=== PATIENT | female | born 1985 | race Two or more races ===

== ENCOUNTER 2018-05-21 23:11 | Emergency (ER) | payer SELFPAY ==
[~2018-05-21] VITALS: Ht 157.5 cm; Wt 79.8 kg
[2018-05-22] MEDS ORDERED: IV NORMAL SALINE 1000ML BAG 1,000 ML IV SCH (00:30)
[2018-05-22 00:42] LABS: BASO # 0.1 x10^3/uL (0.0-0.2); BASO % 1 % (0-3); EOS # 0.2 x10^3/uL (0.0-0.7); EOS % 3 % (0-3); HEMATOCRIT 36.9 % (36.0-47.0); HEMOGLOBIN 13.1 g/dL (12.0-15.5); LYMPH # 3.5 x10^3/uL (1.0-4.8); LYMPH % 37 % (24-48); MEAN CORPUSCULAR HEMOGLOBIN 30 pg (25-35); MEAN CORPUSCULAR HGB CONC 36 g/dL (31-37); MEAN CORPUSCULAR VOLUME 85 fL (79-100); MONO # 0.8 x10^3/uL (0.0-1.1); MONO % 8 % (0-9); NEUT # 4.7 x10^3uL (1.8-7.7); NEUT % 51 % (31-73); PLATELET COUNT 312 x10^3/uL (140-400); RED BLOOD COUNT 4.36 x10^6/uL (3.50-5.40); RED CELL DISTRIBUTION WIDTH 13.9 % (11.5-14.5); WHITE BLOOD COUNT 9.3 x10^3/uL (4.0-11.0)
[2018-05-22 00:43] LABS: BILIRUBIN,URINE NEGATIVE (NEG); CLARITY,URINE CLEAR; COLOR,URINE YELLOW; NITRITE,URINE POSITIVE (NEG); PH,URINE 5.5; PROTEIN,URINE NEGATIVE (NEG-TRACE); UROBILINOGEN,URINE 0.2 mg/dL (0.2 mg/dL)
[2018-05-22 00:48] LABS: BACTERIA,URINE MANY /HPF (0-FEW); RBC,URINE OCC /HPF (0-2); SQUAMOUS EPITHELIAL CELL,UR MOD /LPF; WBC,URINE >40 /HPF (0-4)
[2018-05-22 00:51] LABS: CALCIUM 8.4 mg/dL (8.5-10.1); CREATININE 0.7 mg/dL (0.6-1.0); GFR 95.8; POTASSIUM 3.3 mmol/L (3.5-5.1)
[2018-05-22 00:57] LABS: ALBUMIN 3.4 g/dL (3.4-5.0); ALBUMIN/GLOBULIN RATIO 0.8 (1.0-1.7); TOTAL BILIRUBIN 0.2 mg/dL (0.2-1.0); TOTAL PROTEIN 7.7 g/dL (6.4-8.2)
--- NOTE | 2018-05-22 01:20 | EKG ---
[facility] [address] [place] [address] Test Date: 2018-05-22 Test Time: 00:18:06 Pat Name: ERAN HILL Department: Room: Gender: F Rehab Department Manager: : 1985 Requested By: TIGIST PARRISH Order Number: [id number] Reading MD: Measurements Intervals [place] Rate: 102 P: 44 SC: 174 QRS: 17 QRSD: 88 T: 34 QT: 348 QTc: 458 Interpretive Statements SINUS TACHYCARDIA NO SPECIFIC ECG ABNORMALITIES RI6.01 No previous ECG available for comparison
--- NOTE | 2018-05-22 01:47 | PHYS DOC ---
Past Medical History Past Medical History: No Pertinent History Past Surgical History: Other Additional Past Surgical Histo: X 2 Alcohol Use: None Drug Use: None Adult General Chief Complaint Chief Complaint: ANXIETY/PANIC ATTACK HPI HPI Patient is a 32-year-old female who presents with complaint of just not feeling well. Patient states that she has been feeling short of breath ever since waking up and finding that she had blood in her hair. Patient states that she thinks that a pimple it popped in her scalp that caused the bleeding. She denies any trauma. Patient also indicates that she has been feeling a little bit nauseated with lower abdominal discomfort. She denies any back pain or chest pain. She also denies any cough. Patient states that she just feels like she can't get enough air in. Review of Systems Review of Systems Constitutional: Denies fever or chills [] Respiratory: Complains of shortness of breath without cough[] Cardiovascular: Denies chest pain[] GI: Complains of suprapubic pain with nausea. No vomiting or diarrhea[] Musculoskeletal: Denies back pain or joint pain [] Integument: Denies rash or skin lesions [] Neurologic: Complains of mild headache[] All other systems were reviewed and found to be within normal limits, except as documented in this note. Current Medications Current Medications Current Medications Medications (Trade) Dose Ordered Sig/Nathanael Start Time Stop Time Status Last Admin Dose Admin Ceftriaxone Sodium 50 ml @ 100 mls/hr 1X ONCE 05/22/18 01:30 05/22/18 01:59 DC 05/22/18 01:50 100 MLS/HR Sodium Chloride 1,000 ml @ 1,000 mls/hr Q1H 05/22/18 00:30 05/22/18 01:29 DC 05/22/18 01:25 1,000 MLS/HR Allergies Allergies Allergies Coded Allergies Type Severity Reaction Last Updated Verified Penicillins Allergy Intermediate 05/22/18 Yes Physical Exam Physical Exam Constitutional: Well developed, well nourished, no acute distress, non-toxic appearance. [] HENT: Normocephalic, atraumatic, bilateral external ears normal, oropharynx moist, no oral exudates, nose normal. [] Eyes: PERRLA, EOMI, conjunctiva normal, no discharge. [] Neck: Normal range of motion, no tenderness, supple, no stridor. [] Cardiovascular:Heart rate regular rhythm [] Lungs & Thorax: Bilateral breath sounds clear to auscultation [] Abdomen: Bowel sounds normal, soft, with mild suprapubic tenderness. [] Skin: Warm, dry, no erythema, no rash. [] Extremities: No tenderness, no cyanosis, no clubbing, ROM intact, no edema. [] Neurologic: Alert and oriented X 3, normal motor function, normal sensory function, no focal deficits noted. [] Current Patient Data Vital Signs Vital Signs Date Time Temp Pulse Resp B/P (MAP) Pulse Ox O2 Delivery O2 Flow Rate FiO2 05/21/18 23:45 98.7 106 20 118/77 (91) 95 Room Air 98.7 Lab Values Laboratory Tests Test 05/22/18 00:25 05/22/18 00:30 05/22/18 00:37 White Blood Count 9.3 x10^3/uL (4.0-11.0) Red Blood Count 4.36 x10^6/uL (3.50-5.40) Hemoglobin 13.1 g/dL (12.0-15.5) Hematocrit 36.9 % (36.0-47.0) Mean Corpuscular Volume 85 fL (79-100) Mean Corpuscular Hemoglobin 30 pg (25-35) Mean Corpuscular Hemoglobin Concent 36 g/dL (31-37) Red Cell Distribution Width 13.9 % (11.5-14.5) Platelet Count 312 x10^3/uL (140-400) Neutrophils (%) (Auto) 51 % (31-73) Lymphocytes (%) (Auto) 37 % (24-48) Monocytes (%) (Auto) 8 % (0-9) Eosinophils (%) (Auto) 3 % (0-3) Basophils (%) (Auto) 1 % (0-3) Neutrophils # (Auto) 4.7 x10^3uL (1.8-7.7) Lymphocytes # (Auto) 3.5 x10^3/uL (1.0-4.8) Monocytes # (Auto) 0.8 x10^3/uL (0.0-1.1) Eosinophils # (Auto) 0.2 x10^3/uL (0.0-0.7) Basophils # (Auto) 0.1 x10^3/uL (0.0-0.2) Sodium Level 142 mmol/L (136-145) Potassium Level 3.3 mmol/L (3.5-5.1) L Chloride Level 107 mmol/L (98-107) Carbon Dioxide Level 19 mmol/L (21-32) L Anion Gap 16 (6-14) H Blood Urea Nitrogen 12 mg/dL (7-20) Creatinine 0.7 mg/dL (0.6-1.0) Estimated GFR (Cockcroft-Gault) 95.8 BUN/Creatinine Ratio 17 (6-20) Glucose Level 127 mg/dL (70-99) H Calcium Level 8.4 mg/dL (8.5-10.1) L Total Bilirubin 0.2 mg/dL (0.2-1.0) Aspartate Amino Transferase (AST) 15 U/L (15-37) Alanine Aminotransferase (ALT) 33 U/L (14-59) Alkaline Phosphatase 71 U/L (46-116) EF-Drb-T-Type Natriuretic Peptide 35 pg/mL (0-124) Total Protein 7.7 g/dL (6.4-8.2) Albumin 3.4 g/dL (3.4-5.0) Albumin/Globulin Ratio 0.8 (1.0-1.7) L Urine Collection Type Unknown Urine Color Yellow Urine Clarity Clear Urine pH 5.5 Urine Specific [place] 1.020 Urine Protein Negative mg/dL (NEG-TRACE) Urine Glucose (UA) Negative mg/dL (NEG) Urine Ketones (Stick) 15 mg/dL (NEG) Urine Blood Moderate (NEG) Urine Nitrite Positive (NEG) Urine Bilirubin Negative (NEG) Urine Urobilinogen Dipstick 0.2 mg/dL (0.2 mg/dL) Urine Leukocyte Esterase Moderate (NEG) Urine RBC Occ /HPF (0-2) Urine WBC >40 /HPF (0-4) Urine Squamous Epithelial Cells Mod /LPF Urine Bacteria Many /HPF (0-FEW) Urine Mucus Slight /LPF POC Urine HCG, Qualitative Hcg negative (Negative) Laboratory Tests 05/22/18 00:25 Laboratory Tests 05/22/18 00:25 EKG EKG [] Interpretation Time: EKG demonstrates sinus tachycardia with rate of 102. No ST segment abnormalities noted. Radiology/Procedures Radiology/Procedures [] Impressions: Chest x-ray demonstrates no acute process. Course & Med Decision Making Course & Med Decision Making Pertinent Labs and Imaging studies reviewed. (See chart for details) [] Dragon Disclaimer Dragon Disclaimer This electronic medical record was generated, in whole or in part, using a voice recognition dictation system. Departure Departure Impression: Primary Impression: Urinary tract infection Additional Impression: Anxiety about health Disposition: HOME, SELF-CARE Condition: STABLE Referrals: NO PCP (PCP) Patient Instructions: Anxiety and Panic Attacks, Urinary Tract Infection Scripts Ondansetron Hcl (ZOFRAN) 4 Mg Tablet 4 MG PO PRN TID PRN for NAUSEA, #15 nausea/vomiting Prov: TIGIST PARRISH Jr. DO 05/22/18 Sulfamethoxazole/Trimethoprim (BACTRIM DS TABLET) 1 Each Tablet 1 TAB PO BID, #14 TAB Prov: TIGIST PARRISH Jr. DO 05/22/18 Problem Qualifiers Primary Impression: Urinary tract infection Urinary tract infection type: site unspecified Hematuria presence: without hematuria Qualified Codes: N39.0 - Urinary tract infection, site not specified TIGIST PARRISH Jr. DO May 22, 2018 01:47
[2018-05-22] MEDS ORDERED: ONDA4TAB7 PO (02:29)
[2018-05-22] MEDS ORDERED: SULF1TAB24 PO (02:29)
[2018-05-22 02:34] VITALS: BP 100/56
--- NOTE | 2018-05-22 02:51 | RAD ---
PORTABLE CHEST 1V Clinical History: DYSPNEA Technique: AP view of the chest was obtained at 05/22/2018 1:12 AM. Comparison: None. Findings: The cardiomediastinal silhouette is normal. The pulmonary vasculature is normal. There are linear opacities in the lung bases . Impression: Basilar infiltrates could be discoid atelectasis or early pneumonia. Electronically signed by: Ti Benítez III, MD (05/22/2018 2:47 AM) [facility]
== END 2018-05-22 02:49 | disposition home or self-care (01) ==
LOC: ER 23:11
DX: N39.0 Urinary tract infection, site not specified (principal); F41.9 Anxiety disorder, unspecified; R51 Headache; R06.02 Shortness of breath; R11.0 Nausea; Z98.890 Other specified postprocedural states; Z88.0 Allergy status to penicillin
CPT/HCPCS: 36415; 71045; 80053; 81001; 81025; 83880; 85025; 87086; 93005; 96365; 99285; J0690; J7030; 87186

== ENCOUNTER 2020-12-28 18:33 | Emergency (ER) | payer SELFPAY ==
[~2020-12-28] VITALS: Ht 160 cm; Wt 72.0 kg
[~2020-12-28 18:33] MED LIST: ONDA4TAB7 PO; SULF1TAB24 PO
[2020-12-28 18:58] VITALS: BP 124/64
[2020-12-28] MEDS ORDERED: MECLIZINE HCL 12.5 MG TABLET. PO ONE (19:30)
[2020-12-28] MEDS ORDERED: methylPREDNISolone SOD SUCC PF 125 MG/2 ML VIAL. IM ONE (19:30)
[2020-12-28] MEDS ORDERED: ONDANSETRON ODT 4 MG TAB.RAPDIS. PO ONE (19:30)
[2020-12-28 19:43] LABS: BILIRUBIN,URINE NEGATIVE (NEG); CLARITY,URINE CLEAR; COLOR,URINE YELLOW; NITRITE,URINE POSITIVE (NEG); PH,URINE 5.5 (<5.0-8.0); PROTEIN,URINE 30 mg/dL (NEG-TRACE); UROBILINOGEN,URINE 0.2 mg/dL (0.2 mg/dL)
[2020-12-28 19:46] LABS: GRANULAR CASTS,URINE FEW /HPF; HYALINE CASTS, URINE MODERATE /HPF
[2020-12-28 19:47] LABS: RBC,URINE >40 /HPF (0-2)
[2020-12-28 19:48] LABS: BACTERIA,URINE MANY /HPF (0-FEW)
[2020-12-28 19:56] LABS: U PREG PATIENT NEGATIVE (NEG)
--- NOTE | 2020-12-28 20:31 | RAD ---
Exam Date: 12/28/2020 8:[address] HEAD/BRAIN WO Indication: Reason: headache / Spl. Instructions: / History: TECHNIQUE: Head CT was performed without intravenous contrast. One or more of the following dose re duction techniques were utilized: *Automated exposure control (AEC) *Adjustment of mA and/or kV according to patient size *Use of iterative reconstruction technique *CT scan done according to ALARA, or ALARA/IMAGE GENTLY FINDINGS: The ventricles and sulci are normal for the patient's stated age. There is no evidence of acute int racranial hemorrhage, extra-axial collection, mass effect, midline shift, or acute territorial infarc t. No lesion of the skull base or the calvarium is seen. The visualized paranasal sinuses, mastoid ai r cells and orbits are normal in appearance. IMPRESSION: No evidence for acute intracranial abnormality. Electronically signed by: Noah Mann MD (12/28/2020 8:28 PM) [facility]
[2020-12-28 21:00] LABS: CALCIUM 9.4 mg/dL (8.5-10.1); CREATININE 1.1 mg/dL (0.6-1.0); GFR 55.9; POTASSIUM 4.3 mmol/L (3.5-5.1)
[2020-12-28 21:07] LABS: ALBUMIN 3.9 g/dL (3.4-5.0); ALBUMIN/GLOBULIN RATIO 1.1 (1.0-1.7); TOTAL BILIRUBIN 0.3 mg/dL (0.2-1.0); TOTAL PROTEIN 7.5 g/dL (6.4-8.2)
[2020-12-28 21:52] LABS: BASO # 0.1 x10^3/uL (0.0-0.2); BASO % 1 % (0-3); EOS # 0.2 x10^3/uL (0.0-0.7); EOS % 1 % (0-3); LYMPH % 26 % (24-48); MEAN CORPUSCULAR HEMOGLOBIN 29 pg (25-35); MEAN CORPUSCULAR HGB CONC 33 g/dL (31-37); MEAN CORPUSCULAR VOLUME 87 fL (79-100); MONO # 0.8 x10^3/uL (0.0-1.1); MONO % 7 % (0-9); NEUT # 7.3 x10^3/uL (1.8-7.7); NEUT % 64 % (31-73); PLATELET COUNT 359 x10^3/uL (140-400); RED BLOOD COUNT 4.48 x10^6/uL (3.50-5.40); RED CELL DISTRIBUTION WIDTH 14.8 % (11.5-14.5); WHITE BLOOD COUNT 11.4 x10^3/uL (4.0-11.0)
[2020-12-28] MEDS ORDERED: ONDA4TAB12 PO (22:11)
[2020-12-28] MEDS ORDERED: SULF1TAB24 PO (22:11)
[2020-12-28] MEDS ORDERED: MECL12.582 PO (22:11)
--- NOTE | 2020-12-28 22:12 | PHYS DOC ---
Past Medical History Past Medical History: No Pertinent History, Anemia (HARMEET CAMPBELL Viktor SUSPENDER CUTTER) Past Surgical History: Additional Past Surgical Histo: X 2 (HARMEET CAMPBELL Viktor SUSPENDER CUTTER) Smoking Status: Never Smoker Alcohol Use: Occasionally Drug Use: None (HARMEET CAMPBELL Viktor SUSPENDER CUTTER) General Adult EDM: Chief Complaint: HEADACHE HPI: HPI: Patient is a 35 year old female with history of anemia who presents to the ED today with complaining of dizziness and headache. Patient states she had come out of the store and was walking to her car, she states she became dizzy and nauseated. She states she did not pass out but had to lean on a vehicle for a while. She states she has had similar symptoms before when she was anemic. Patient denies any chest pain or shortness of breath. She states after the dizziness she had a slight posterior headache. Patient states symptoms are slightly better in the ED but she is very concerned about anemia. Patient denies any chance she is , she states she is currently on her menstrual cycle. Patient is [place]ish-speaking and interpretation was provided by the unit nurse (HARMEET CAMPBELL Viktor SUSPENDER CUTTER) Review of Systems: Review of Systems: Constitutional: Denies fever or chills. [] Eyes: Denies change in visual acuity. [] HENT: Denies nasal congestion or sore throat. [] Respiratory: Denies cough or shortness of breath. [] Cardiovascular: Denies chest pain or edema. [] GI: Denies abdominal pain, nausea, vomiting, bloody stools or diarrhea. [] : Denies dysuria. [] Musculoskeletal: Denies back pain or joint pain. [] Integument: Denies rash. [] Neurologic: Reports dizziness, headache denies focal weakness or sensory changes. [] Psychiatric: Denies depression or anxiety. [] (ADRIANHARMEET Hoang SUSPENDER CUTTER) Heart Score: C/O Chest Pain: N/A Risk Factors: Risk Factors: DM, Current or recent (<one month) smoker, HTN, HLP, family hi story of CAD, obesity. Risk Scores: Score 0 - 3: 2.5% MACE over next 6 weeks - Discharge Home Score 4 - 6: 20.3% MACE over next 6 weeks - Admit for Clinical Observation Score 7 - 10: 72.7% MACE over next 6 weeks - Early Invasive Strategies (HARMEET CAMPBELL M SUSPENDER CUTTER) Current Medications: Current Medications Medications (Trade) Dose Ordered Sig/Nathanael Start Time Stop Time Status Last Admin Dose Admin Meclizine HCl (Antivert) 12.5 mg 1X ONCE 12/28/20 19:30 12/28/20 19:53 DC 12/28/20 19:51 12.5 MG Methylprednisolone Sodium Succinate (SOLU-Medrol 125MG VIAL) 125 mg 1X ONCE 12/28/20 19:30 12/28/20 19:53 DC 12/28/20 19:51 125 MG Ondansetron HCl (Zofran Odt) 4 mg 1X ONCE 12/28/20 19:30 12/28/20 19:53 DC 12/28/20 19:51 4 MG (CÉSARFERNANDAHARMEET M SUSPENDER CUTTER) Allergies: Allergies: Allergies Coded Allergies Type Severity Reaction Last Updated Verified Penicillins Allergy Intermediate 05/22/18 Yes (CÉSARHARMEET MICHAEL M SUSPENDER CUTTER) Physical Exam: PE: Constitutional: Well developed, well nourished, no acute distress, non-toxic appearance. [] HENT: Normocephalic, atraumatic, bilateral external ears normal, oropharynx moist, no oral exudates, nose normal. [] Eyes: PERRLA, EOMI, conjunctiva normal, no discharge. [] Neck: Normal range of motion, no tenderness, supple, no stridor. [] Cardiovascular:Heart rate regular rhythm, no murmur [] Lungs & Thorax: Bilateral breath sounds clear to auscultation [] Abdomen: Bowel sounds normal, soft, no tenderness, no masses, no pulsatile masses. [] Skin: Warm, dry, no erythema, no rash. [] Back: No tenderness, no CVA tenderness. [] Extremities: No tenderness, no cyanosis, no clubbing, ROM intact, no edema. [] Neurologic: Alert and oriented X 3, normal motor function, normal sensory function, no focal deficits noted. Cranial nerves II through XII intact Psychologic: Affect normal, judgement normal, mood normal. [] (CÉSARFERNANDAHARMEET M SUSPENDER CUTTER) Current Patient Data: Labs: Laboratory Tests Test 12/28/20 19:30 12/28/20 20:40 12/28/20 20:45 Urine Collection Type Unknown Urine Color Yellow Urine Clarity Clear Urine pH 5.5 (<5.0-8.0) Urine Specific [place] >=1.030 (1.000-1.030) Urine Protein 30 mg/dL (NEG-TRACE) Urine Glucose (UA) Negative mg/dL (NEG) Urine Ketones (Stick) Negative mg/dL (NEG) Urine Blood Large (NEG) Urine Nitrite Positive (NEG) Urine Bilirubin Negative (NEG) Urine Urobilinogen Dipstick 0.2 mg/dL (0.2 mg/dL) Urine Leukocyte Esterase Negative (NEG) Urine RBC >40 /HPF (0-2) Urine WBC 1-4 /HPF (0-4) Urine Squamous Epithelial Cells Mod /LPF Urine Bacteria Many /HPF (0-FEW) Urine Hyaline Casts Moderate /HPF Urine Granular Casts Few /HPF Urine Mucus Marked /LPF Urine Test Negative (NEG) Sodium Level 144 mmol/L (136-145) Potassium Level 4.3 mmol/L (3.5-5.1) Chloride Level 108 mmol/L (98-107) H Carbon Dioxide Level 25 mmol/L (21-32) Anion Gap 11 (6-14) Blood Urea Nitrogen 16 mg/dL (7-20) Creatinine 1.1 mg/dL (0.6-1.0) H Estimated GFR (Cockcroft-Gault) 55.9 BUN/Creatinine Ratio 15 (6-20) Glucose Level 98 mg/dL (70-99) Calcium Level 9.4 mg/dL (8.5-10.1) Total Bilirubin 0.3 mg/dL (0.2-1.0) Aspartate Amino Transferase (AST) 15 U/L (15-37) Alanine Aminotransferase (ALT) 28 U/L (14-59) Alkaline Phosphatase 88 U/L (46-116) Total Protein 7.5 g/dL (6.4-8.2) Albumin 3.9 g/dL (3.4-5.0) Albumin/Globulin Ratio 1.1 (1.0-1.7) White Blood Count 11.4 x10^3/uL (4.0-11.0) H Red Blood Count 4.48 x10^6/uL (3.50-5.40) Hemoglobin 13.0 g/dL (12.0-15.5) Hematocrit 39.0 % (36.0-47.0) Mean Corpuscular Volume 87 fL (79-100) Mean Corpuscular Hemoglobin 29 pg (25-35) Mean Corpuscular Hemoglobin Concent 33 g/dL (31-37) Red Cell Distribution Width 14.8 % (11.5-14.5) H Platelet Count 359 x10^3/uL (140-400) Neutrophils (%) (Auto) 64 % (31-73) Lymphocytes (%) (Auto) 26 % (24-48) Monocytes (%) (Auto) 7 % (0-9) Eosinophils (%) (Auto) 1 % (0-3) Basophils (%) (Auto) 1 % (0-3) Neutrophils # (Auto) 7.3 x10^3/uL (1.8-7.7) Lymphocytes # (Auto) 3.0 x10^3/uL (1.0-4.8) Monocytes # (Auto) 0.8 x10^3/uL (0.0-1.1) Eosinophils # (Auto) 0.2 x10^3/uL (0.0-0.7) Basophils # (Auto) 0.1 x10^3/uL (0.0-0.2) Laboratory Tests 12/28/20 20:45 Laboratory Tests 12/28/20 20:40 Vital Signs: Vital Signs Date Time Temp Pulse Resp B/P (MAP) Pulse Ox O2 Delivery O2 Flow Rate FiO2 12/28/20 18:58 98.2 115 16 124/64 (84) 95 Room Air 98.2 (HARMEET CAMPBELL SUSPENDER CUTTER) EKG: EKG: [] (HARMEET CAMPBELL SUSPENDER CUTTER) Radiology/Procedures: Radiology/Procedures: []PROCEDURE: CT HEAD WO CONTRAST Exam Date: 12/28/2020 8:[address] HEAD/BRAIN WO Indication: Reason: headache / Spl. Instructions: / History: TECHNIQUE: Head CT was performed without intravenous contrast. One or more of the following dose reduction techniques were utilized: *Automated exposure control (AEC) *Adjustment of mA and/or kV according to patient size *Use of iterative reconstruction technique *CT scan done according to ALARA, or ALARA/IMAGE GENTLY FINDINGS: The ventricles and sulci are normal for the patient's stated age. There is no evidence of acute intracranial hemorrhage, extra-axial collection, mass effect, midline shift, or acute territorial infarct. No lesion of the skull base or the calvarium is seen. The visualized paranasal sinuses, mastoid air cells and orbits are normal in appearance. IMPRESSION: No evidence for acute intracranial abnormality. Electronically signed by: Debra Mann MD (12/28/2020 8:28 PM) [facility] DICTATED and SIGNED BY: DEBRA MANN MD DATE: 12/28/[id number] 0 (HARMEET CAMPBELL APRN) Course & Med Decision Making: Course & Med Decision Making Pertinent Labs and Imaging studies reviewed. (See chart for details) This is a 35-year-old female patient presented to the ED today with an episode of dizziness with nausea and headache that began after walking out of a store. CT of the head is negative, negative urine hCG, positive for UTI. CBC with a WBC of 11.1, CMP with no acute findings. Discharge to home with Bactrim, meclizine and Zofran. Follow-up with PCP in 1 week. (HARMEET CAMPBELL APRN) Dragon Disclaimer: Dragon Disclaimer: This electronic medical record was generated, in whole or in part, using a voice recognition dictation system. (HARMEET CAMPBELL APRN) Departure Departure Impression: Primary Impression: Dizziness Additional Impressions: Headache Qualified Codes: R51.9 - Headache, unspecified Nausea Urinary tract infection Qualified Codes: N39.0 - Urinary tract infection, site not specified Disposition: HOME / SELF CARE / HOMELESS Condition: STABLE Referrals: NO PCP (PCP) follow up with your doctor next week Patient Instructions: Dizziness, [id number], Headache, FAQs, Nausea, Adult, Urinary Tract Infection Additional Instructions: You were evaluated in the emergency room for dizziness, nausea, and a headache. Your CT of the head is negative for any acute findings, your hemoglobin and hematocrit are normal. You are not anemic today. He also have urinary tract infection, please complete your antibiotics. Please follow-up with your primary care doctor in 1 week. Come back to the ED at any point symptoms worsen Scripts Ondansetron (ONDANSETRON ODT) 4 Mg Tab.rapdis 1 TAB PO PRN Q6-8HRS, #16 TAB Prov: HARMEET CAMPBELL APRN 12/28/20 Meclizine Hcl (MECLIZINE HCL) 12.5 Mg Tablet 1 TAB PO TID, #30 TAB 3 Refills Prov: CÉSARHARMEET MICHAEL Viktor PINON 12/28/20 Sulfamethoxazole/Trimethoprim (BACTRIM DS TABLET) 1 Each Tablet 1 TAB PO BID for 7 Days, #14 TAB 0 Refills Prov: TERESITAGeorgetteHARMEET Hoang APRN 12/28/20 Attending Signature Attending Signature I have reviewed the PA/LIEUTENANT SHIFT SUPERVISOR's note and plan of care. I was available for consultation as needed during the patient's visit in the emergency department. I agree with the clinical impression, plan, and disposition. (REYNALDO RESENDEZ DO) HARMEET CAMPBELL APRN Dec 28, 2020 22:12 REYNALDO RESENDEZ DO Dec 29, 2020 00:53
== END 2020-12-28 22:21 | disposition home or self-care (01) ==
LOC: ER 18:33
DX: N39.0 Urinary tract infection, site not specified (principal); R42 Dizziness and giddiness; R51.9 Headache, unspecified; Z88.0 Allergy status to penicillin
CPT/HCPCS: 36415; 70450; 80053; 81001; 81025; 85025; 99284; J2930; J8597